=== PATIENT | male | born 1950 | race Caucasian/White ===

== ENCOUNTER → 2017-05-21 | Outpatient (CLI) | payer MEDICARE | LOC: COL.RAD 09:56 | DX: M48.02 Spinal stenosis, cervical region (principal); M25.78 Osteophyte, vertebrae; M50.322 Other cervical disc degeneration at C5-C6 level; Z98.890 Other specified postprocedural states; Z96.9 Presence of functional implant, unspecified ==

== ENCOUNTER → 2017-11-26 | Outpatient (CLI) | payer MEDICARE | LOC: COL.RAD 12:43 | DX: M54.41 Lumbago with sciatica, right side (principal) ==

== ENCOUNTER → 2018-12-24 | Outpatient (CLI) | payer MEDICARE | LOC: COL.RAD 13:20 | DX: K76.0 Fatty (change of) liver, not elsewhere classified (principal); Z98.890 Other specified postprocedural states | CPT/HCPCS: Q9967 ==

== ENCOUNTER → 2020-05-02 | Outpatient (CLI) | payer MEDICARE | LOC: COL.VAS 13:15 | DX: I65.23 Occlusion and stenosis of bilateral carotid arteries (principal); I25.10 Atherosclerotic heart disease of native coronary artery without angina pectoris; I10 Essential (primary) hypertension ==

== ENCOUNTER → 2021-12-13 | Outpatient (CLI) | payer MEDICARE | LOC: COL.RAD 12:09 | DX: R10.31 Right lower quadrant pain (principal) ==

== ENCOUNTER → 2022-12-31 | Outpatient (CLI) | payer MEDICARE ==
[~2022-12-31] VITALS: Ht 177.8 cm; Wt 95.8 kg
[~2022-12-31] MED LIST: AMITRIPTYLINE H50 M1 PO; ATARAX50 MG PO; ATIVAN 0.50.5 MG/TAB PO; ATIVAN 1MG T1 MG/TAB PO; BENICAR HCT 251 TAB PO; CRESTOR5 MG PO; NEXIUM20 MG/Pack PO; NORVASC 10MG10 MG PO; OSCAL 500 TAB500 MG PO; STOOL SOFTENER100 M2 PO; TOPROL XL 50MG50 MG PO; TOPROL XL100 MG PO; TYLENOL 500MG500 MG PO; ULTRAM 50MG TAB50 MG PO
--- NOTE | 2022-12-31 10:33 | NUR ---
pt brought back to rad holding. pain still present. given miya
== END ==
LOC: COL.RAD 07:49
DX: M50.10 Cervical disc disorder with radiculopathy, unspecified cervical region (principal); M48.02 Spinal stenosis, cervical region; Z98.1 Arthrodesis status
CPT/HCPCS: J1100